=== PATIENT | male | born 1960 | race Caucasian/White ===

== ENCOUNTER 2018-02-23 09:45 | Day surgery (SDC) | payer BC ==
[~2018-02-23 09:45] MED LIST: Buffered Lidocaine 0.9% SYRIN* 5 ML/SYR SYRINGE INTRADERM ONE; Dexamethasone IV* 4 MG/ML 1 ML (4 MG) IV SLOW PU ONE; Famotidine IV* 10 MG/ML 2 ML (20 mg) IV ONE
[2018-02-23] MEDS ORDERED: Famotidine IV* 10 MG/ML 2 ML (20 mg) ONE (10:00)
[2018-02-23] MEDS ORDERED: Dexamethasone IV* 4 MG/ML 1 ML (4 MG) ONE (10:01)
[2018-02-23] MEDS ORDERED: ceFAZolin 2 GM PREMIX (*) 2 GM/50 ML BAG IVPB ONE (10:01)
[2018-02-23] MEDS ORDERED: Buffered Lidocaine 0.9% SYRIN* 5 ML/SYR SYRINGE ONE (10:01)
[2018-02-23] MEDS ORDERED: Methylene Blue 0.5 %* 50 MG/10 ML AMP IV ONE (12:33)
[2018-02-23] MEDS ORDERED: Lidocain 1% EPI 1:100,000 * 30 ML MDV ONE (12:34)
[2018-02-23] MEDS ORDERED: Mineral Oil Sterile, TOPICAL* 25 ML BTL ONE (12:34)
[2018-02-23] MEDS ORDERED: Bupivacaine 0.25% W/EPI* 10 ML SDV ONE (12:34)
[2018-02-23] MEDS ORDERED: Midazolam* 1 MG/ML 2 ML VIAL (2 MG) ONE (12:35)
[2018-02-23] MEDS ORDERED: fentaNYL* 50 MCG/ML 2 ML VIAL (100 MCG VIAL) ONE (12:35)
[2018-02-23] MEDS ORDERED: Propofol* 10 MG/ML 20 ML BTL IV PUSH ONE ×2 (12:35→14:43)
[2018-02-23] MEDS ORDERED: Lidocaine 2% PF * 5 ML VIAL ONE (12:35)
[2018-02-23] MEDS ORDERED: HYDROcodone/ACETAMIN 5-325 MG* 1 TAB PO PRN (12:38)
[2018-02-23] MEDS ORDERED: Ondansetron INJ* 2 MG/ML VIAL IV PRN (12:38)
[2018-02-23] MEDS ORDERED: Naloxone* 0.4 MG/ML 1 ML VIAL IV PRN (12:38)
[2018-02-23] MEDS ORDERED: fentaNYL* 50 MCG/ML 2 ML VIAL (100 MCG VIAL) IV PRN (12:38)
[2018-02-23] MEDS ORDERED: oxyCODONE/Acetamin 5/325 MG* TAB PO PRN (12:38)
[2018-02-23] MEDS ORDERED: Lidocaine 1% MPF wEPI 200,000* 30 ML SDV ONE (13:04)
[2018-02-23 16:12] VITALS: BP 120/80
== END 2018-02-23 16:16 | disposition home or self-care (01) ==
LOC: OR 09:45
PROVIDERS: ATTEND Plastic Surgery
DX: C44.319 Basal cell carcinoma of skin of other parts of face (principal); R97.20 Elevated prostate specific antigen [PSA]
CPT/HCPCS: 88305; 88331; 88332; A9270-GY; J0690; J1100; J2001; J2250; J2704; J3010